=== PATIENT | female | born 1995 | race Caucasian/White ===

== ENCOUNTER → 2019-05-19 16:45 | Outpatient (CLI) | payer OTHER, MEDICAID, SELFPAY ==
[2019-05-19 17:44] LABS: Internal QC Validated? YES +Cl - CLEAR BKGD; Pregnancy, Urine Negative Negative
== END ==
PROVIDERS: PCP Family Medicine; Referring Provider Dermatology; Visit Provider Dermatology
DX: L70.0 Acne vulgaris (principal); Z79.899 Other long term (current) drug therapy
CPT/HCPCS: 81025

== ENCOUNTER → 2019-08-04 | Outpatient (CLI) | payer OTHER, MEDICAID, SELFPAY ==
[2016-12-02 09:58] VITALS: BMI 41.8
[2019-08-04 17:37] LABS: Internal QC Validated? YES +Cl - CLEAR BKGD; Pregnancy, Urine Negative Negative
--- OUTSIDE RECORDS SUMMARY | 2019-12-19 07:22 | XMS RPT_ITS | CCD ---
:1995 External Reference #:[id number] Author Organization [facility] Care Team Providers Name Role Phone Shanique Ang Primary Care Provider Medications Medication Name Sig Date Prescriber Location Albuterol albuterol HFA (PROAIR 03-30-2019 [facility] HFA) 90 mcg/actuation (79483 ) inhaler Indications: Wheezing on auscultation Inhale 2 Puffs as instructed every 4 hours as needed. 1 Inhaler 5 03/30/2019 Active Comment: Inhale 2 Puffs as instructed every 4 hours as needed. Amphetamine amphetamine-dextroamphetamine 09-30-2019 - [facility] aspartate / XR (ADDERALL XR) 20 mg 24 hr 12-30-2019 [facility] Amphetamine Sulfate capsule Indications: Attention (87691) / Dextroamphetamine deficit hyperactivity disorder saccharate / (ADHD), unspecified ADHD type Dextroamphetamine Take 1 capsule by mouth once Sulfate daily for 30 days. 30 capsule 0 11/01/2019 11/30/2019 Discontinued Comment: Take 1 capsule by mouth once daily for 30 days. ISOtretinoin ISOtretinoin (ACCUTANE) 05-10-2019 [facility] 10 mg capsule Take 1 (38050) capsule by mouth twice daily. [facility] 0 05/10/2019 Active Comment: Take 1 capsule by mouth twic e daily. Prescribed [facility] Minocycline minocycline (MINOCIN, 10-12-2019 [facility] Provider [facility] DYNACIN) 100 mg capsule (441 95) Take 1 capsule by mouth once daily. 0 10/12/2019 Active Comment: Take 1 capsule by mouth once daily. Problems Active Problems Category Problem Name Status Date Location Anxiety disorders Anxiety disorder Active 01-05-2013 - [facility] (82530) Attention-deficit Attention deficit Active 08-03-2009 - [facility] conduct and disruptive hyperactivity disorder (23199) behavior disorders Mood disorders Depressive disorder Active 06-24-2008 - [facility] (84153) Other nutritional; Obesity Active [facility] endocrine; and (29757) metabolic disorders Other skin disorders Acne Active [facility] (85278) Screening and history Tobacco use and Active 05-23-2016 - [facility] health and exposure - finding ( 83026) substance abuse codes Substance-related Stopped smoking Active 05-23-2016 - [facility] disorders (08651) Unclassified Patient encounter Active [facility] status (33211) Past or Other Problems Category Problem Name Status Date Location Hypertension complicating Pre-eclampsia Completed 01-13-2017 - [facility] ; childbirth and (4 8214) the puerperium Results Result Name Value Range Unit Interpretation Flag Date Location obsolete on 2019-11 OBSOLETE Refill (FAMPWS) Normal 11-30-2019 [facility] ISIDRA MORELAND ([id number]) 1995 [facility] Date Time Provider Department ([id number]) 11/30/19 HEAVEN ANG During your visit today, we recorded the following informati on about you: Bessy Urbina Ma 11/30/2019 8:53 AM Signed Patient has been identified by name and date of : Yes Pending Prescriptions Disp Refills DEXTROAMPHETAMINE-AMPHETAMINE ER 20 MG 24HR CAPS ULE,EXTEND RELEASE 30 capsule 0 Sig: Take 1 capsule by mouth once daily for 30 days. GISSEL Class: C-II SCOTT: No RX INSTRUCTIONS: Patient aware RX will be sent to pharmacy. No need to notify patient. Bessy Urbina Ma Last ov: 11/2019 Last refill; 11/01/2019 No appointment scheduled Heaven Ang MD 11/30/2019 11:22 AM Signed OK to refill as ordered MD Clau Sommer Ma 11/30/2019 11:25 AM Signed The following approved medic ation requests have been transmitted electronically. Signed Prescriptions Disp Refills amphetamine-dextroamphetamine XR (ADDERALL XR) 2 0 mg 24 hr capsule 30 capsule 0 Sig: Take 1 capsule by mouth once daily for 30 days. GISSEL Class: C-II SCOTT: No Authorizing Provider: HEAVEN ANG Ma Allergies As of Date: 11/30/2019 (No Known Allergies) Date Reviewed: 11/10/2019 Reviewed by: Nando Domínguez MA - Fully Assessed Reason for Visit: Refill Request [94] Visit Diagnosis:Attention deficit hyperactivity disord er (ADHD), unspecified ADHD type [F90.9] Order(s):amphetamine-dextroamphetamine XR (ADDERALL XR) 20 m g 24 hr capsuleTake 1 capsule by mouth once daily for 30 days.Disp: 30 capsuleRfl: 0 Prescriptions as of 11/30/2019 Sig: DEXTROAMPHETAMINE-AMPHETAMINE* Take 1 capsule by mouth once * MINOCYCLINE 100 MG CAPSULE Take 1 capsule by mouth once * ISOTRETINOIN 10 MG CAPSULE Take 1 capsule by mouth twice* ALBUTEROL SULFATE HFA 90 MCG/* Inhale 2 Puffs as instructed * Problem List As Of Date 11/30/2019 Noted Resolved Depression [F32.9] 06/24/2008 ADHD (Attention Deficit Hyperactivity Disorder)*08/03/2009 Missed [O02.1] 07/18/2010 08/06/2010 Anxiety disorder [F41.9] 01/05/2013 Tobacco use [Z72.0] Obesity [E66.9] Obesity in [O99.210] 05/23/2016 01/13/2017 More... Quit smoking [Z87.891] 05/23/2016 More... History of depression [Z86.59] 05/23/2016 More... Patient requested diagnostic testing [Z01.89] 05/23/201604/2016 More... 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 Medications Discontinued During This Encounter Prescriptions - amphetamine-dextroamphetamine XR (ADDERALL XR) 20 mg 24 hr capsule (Discontinued) Take 1 capsule by mouth once daily for 30 days. Encounter Status:Closed by CLAU OLIVEIRA MA on 11/30/19 remote cmp (for [facility] use only) on 2019-11-26 Albumin [Mass/Vol] 4.7 3.9-4.9 g/dL Normal 11-26-2019 [facility] (95917) Comment: Performed By: #### RCMP #### [address] [phone] ALP [Catalytic activity/Vol] 57 34-123 U/L Normal 0 11-26-2019 [facility] (46703) Comment: Performed By: #### RCMP #### [address] [phone] ALT [Catalytic activity/Vol] 16 7-38 U/L Normal 0 11-26-2019 [facility] (81883) Comment: Performed By: #### RCMP #### [address] [phone] Anion gap [Moles/Vol] 14 9-18 mmol/L Normal 11-26-19 [facility] (23546) Comment: Performed By: #### RCMP #### [address] [phone] AST [Catalytic activity/Vol] 25 13-35 U/L Normal 0 11-26-2019 [facility] (84197) Comment: Performed By: #### RCMP #### [address] [phone] Bilirubin [Mass/Vol] 0.3 0.2-1.3 mg/dL Normal 0 [facility] (65310) Comment: Performed By: #### RCMP #### [place] [id number] [place], [place] [phone]- [phone] Calcium [Mass/Vol] 9.9 8.5-10.2 mg/dL Normal 11-26-2019 [facility] (18601) Comment: Performed By: #### RCMP #### [place] [address] [address] [place], [place] [phone]- [phone] Chloride [Moles/Vol] 102 97-105 mmol/L Normal 0 [facility] (67186) Comment: Performed By: #### RCMP #### [place] [address] [address] [place], [place] [phone]- [phone] CO2 [Moles/Vol] 22 22-30 mmol/L Normal 11-26-2019 [facility] (57916) Comment: Performed By: #### RCMP #### [place] [address] [address] [place], [place] [phone] Creatinine [Mass/Vol] 0.83 0.58-0.96 mg/dL Normal 11-26-19 20 [facility] (30349) Comment: Performed By: #### RCMP #### [place] [address] [address] [place], [place] [phone] eGFR- Amer. >60 Normal 11-26-2019 [facility] (61177) Comment: Performed By: #### RCMP #### [place] [address] [address] [place], [place] [phone] GFR/1.73 sq M predicted >60 mL/min/{1.73_m2} Normal 11-26-2019 [facility] among non-blacks [facility] (37490) (S/P/Bld) [Vol rate/Area] Comment: Result Comment: eGFR (Estima delaney GFR) Units of measure: mL/min/1.73 meters squared eGFR is derived from the ree xpressed MDRD Study equation using the following parameters: serum creatinine, age, gender and race. The creatinine assay has been calibrated to be traceable to IDMS. An eGFR <60 mL/min/1.73m2 fo r >3 months is consistent with chronic kidney disease. Refer to KDOQI guidelines for clinical interpretation. In patients with unstable re nal function, e.g. those with acute kidney injury, the eGFR may not accurately reflect actual GFR. Performed By: #### RCMP #### [facility], [place] [phone]- [phone] Glucose [Mass/Vol] 77 74-99 mg/dL Normal 11-26-2019 [facility] (61800) Comment: Result Comment: The [place] Diabetes Association (ADA) provides guidance for cutoff values for fasting glucose and random glucose. The ADA defines fasting as no caloric intake for at least 8 hours. Fas ting plasma glucose results between 100 to 125 mg/dL indicate increased risk for diabetes (prediabetes). Fasting plasma glucose resul ts greater than or equal to 126 mg/dL meet the criteria for diagnosis of diabetes. In the absence of unequivocal hyperglycemia, results should be confirmed by repeat testing. In a patient with classic s ymptoms of hyperglycemia or hyperglycemic crisis, random plasma glucose results greater than or equal to 200 mg/dL meet the criteria for diagnosis of diabetes. Reference: Standards of [facility] in Diabetes 2016, [place] Diabetes Association. Diabetes Care. 2016.39(Suppl 1). Performed By: #### RCMP #### [facility], [place] [phone] Potassium [Moles/Vol] 4.1 3.7-5.1 mmol/L Normal 11-26-19 [facility] (23153) Comment: Performed By: #### RCMP #### [facility] [address] [place], [place] [phone]- [phone] Protein [Mass/Vol] 7.8 6.3-8.0 g/dL Normal 11-26-2019 [facility] (40193) Comment: Performed By: #### RCMP #### [facility], [place] [phone]- [phone] Sodium [Moles/Vol] 138 136-144 mmol/L Normal 11-26-2019 [facility] (03285) Comment: Performed By: #### RCMP #### [place] [address], [place] [phone]- [phone] Urea nitrogen [Mass/Vol] 22 7-21 mg/dL High 11-25 [facility] (70872) Comment: Performed By: #### RCMP #### [place] [address], [place] [phone] cbc and differential on 2019-11-26 Abs Baso 0.03 <0.11 k/uL Normal 11-26-2019 [facility] (54533) Comment: Performed By: #### CBCDIF ## ##[place] [address], [place] [phone]- [phone] Abs Hyde 0.82 <0.87 k/uL Normal 11-26-2019 [facility] (01473) Comment: Performed By: #### CBCDIF ## ##[place] [address] [place] [id number]- [phone] Abs Neut 5.52 1.45-7.50 k/uL Normal 11-26-2019 [facility] (75418) Comment: Performed By: #### CBCDIF ## ##[place] [address], [place] [phone]- [phone] Absolute nRBC <0.01 <0.01 Normal 11-26-2019 [facility] (52439) Comment: Performed By: #### CBCDIF ## ##[place] [address], [place] [phone]- [phone] Basophils/100 WBC (Bld) 0.4 % Normal 2019 [facility] (46335) Comment: Performed By: #### CBCDIF ## ##[place] [address], [place] [phone]- [phone] DTYPE Auto Diff Normal 11-26-2019 [facility] (18122) Comment: Performed By: #### CBCDIF ## ##[place] [address], [place] [phone]- [phone] Eosinophils (Bld) [#/Vol] 0.08 <0.46 k/uL Normal 11-02 [facility] (81243) Comment: Performed By: #### CBCDIF ## ##[place] [address], [place] [phone]- [phone] Eosinophils/100 WBC (Bld) 0.9 % Normal 11-02 [facility] (02940) Comment: Performed By: #### CBCDIF ## ##[place] [address] [place], [place] [id number]- [phone] Erythrocyte distribution 12.5 11.5-15.0 % Normal 11-25 [facility] width (RBC) [Ratio] [facility] (15649) Comment: Performed By: #### CBCDIF ## ##[place] [address] [place], [place] [phone]- [phone] Hematocrit (Bld) [Volume 44.8 36.0-46.0 % Normal 11-25 [facility] fraction] [facility] (28553) Comment: Performed By: #### CBCDIF ## ##[place] [address] [place], [place] [phone]- [phone] Hemoglobin (Bld) 14.1 11.5-15.5 g/dL Normal 11-26-2019 [facility] [Mass/Vol] [facility] (56354) Comment: Performed By: #### CBCDIF ## ##[place] [address], [place] [id number] [phone] Lymphocytes (Bld) [#/Vol] 2.01 1.00-4.00 k/uL Normal 11-02 [facility] (81383) Comment: Performed By: #### CBCDIF ## ##[place] [address], [place] [phone]- [phone] Lymphocytes/100 WBC (Bld) 23.7 % Normal 11-02 [facility] (45917) Comment: Performed By: #### CBCDIF ## ##[place] [address], [place] [phone]- [phone] MCH (RBC) [Entitic mass] 31.0 26.0-34.0 pG Normal 11-25 [facility] (86294) Comment: Performed By: #### CBCDIF ## ##[place] [address], [place] 00066083- [phone] MCHC (RBC) [Mass/Vol] 31.5 30.5-36.0 g/dL Normal 11-26-19 [facility] (46322) Comment: Performed By: #### CBCDIF ## ##[place] [address] [place], [place] [phone]- [phone] MCV (RBC) [Entitic vol] 98.5 80.0-100.0 fL Normal 11-25 [facility] (06178) Comment: Performed By: #### CBCDIF ## ##[place] [address], [place] [id number]- [phone] Monocytes/100 WBC (Bld) 9.7 % Normal 2019 [facility] (12326) Comment: Performed By: #### CBCDIF ## ##[place] [address], [place] [phone]- [phone] Neutrophils/100 WBC (Bld) 65.3 % Normal 11-02 [facility] (83611) Comment: Performed By: #### CBCDIF ## ##[place] [address], [place] [phone]- [phone] NRBCs 0.0 0 /100 WBC Normal 11-26-2019 [facility] (68579) Comment: Performed By: #### CBCDIF ## ##[place] [address], [place] [phone]- [phone] Platelet mean volume 10.3 9.0-12.7 fL Normal 0 [facility] (Bld) [Entitic vol] [facility] (21088) Comment: Performed By: #### CBCDIF ## ##[address] [phone] Platelets (Bld) [#/Vol] 342 150-400 k/uL Normal 2019 [facility] (93445) Comment: Performed By: #### CBCDIF ## ##[address] [phone] RBC (Bld) [#/Vol] 4.55 3.90-5.20 m/uL Normal 11-26-2019 [facility] (22068) Comment: Performed By: #### CBCDIF ## ##[address] [phone]- [phone] WBC (Bld) [#/Vol] 8.48 3.70-11.00 k/uL Normal 11-26-2019 [facility] (57084) Comment: Performed By: #### CBCDIF ## ##[address] [phone]- [phone] progress on 2019-11 PROGRESS HNO ID: [id number] Normal 11-10-2019 [facility] Author: [facility] ([id number]) Service: ? Author Type: Physician Type: Progress Notes Filed: 11/10/2019 5:54 PM Note Text: This Team Access Model visit is a virtual encounter via [employer]. It required patient-provider interaction for the medical decisi on making as documented below. Chief Complaint Patient presents with: F/U 6 Month HPI:This Team Access Model visit is a virtual encounter. It required patient-provider interaction for the medical decision making as documented below. Patient was offered a virtual/telemedicine appointment in li eu of an office visit due to recommendations to reduce patient exposu re to COVID-19. Patient is aware of limitations of performing the visit without a face to face visit in the office setting and agrees. 6 mo f/u. ADHD - Doing well with use of Adderall XR 20 mg once daily. Pt reports that she is doing well on regimen and is able to stay focuse d. Derm - Started new regimen of Minocycline 100 mg once daily. Reports that she never started the Accutane that was prescribed previousl y. Reports her boss tested + for COVID - not in the last month. Pt denies being tested, having symptoms or travel. Requests labs; has not had done since she had preeclampsia w ith her daughter almost three years ago. Past medical history, appointments, medications, allergies pablo foster. Previous Medical History PAST MEDICAL HISTORY Diagnosis Date - Acne - ADHD (attention deficit hyperactivity disorder) - Anemia - Anxiety disorder 01/05/2013 - Asthma unknown type - Chlamydia 2014 - Depression - Hypertension in , pre-eclampsia, delivered 2016 - Obesity - Tobacco use Previous Surgical History PAST SURGICAL HISTORY Procedure Laterality Date - OTHER 2010 Eye muscle surgery - SURG RX MISSED ABORTN,1ST TRI 07/20/10 DANDC, hemorrhage EBL 1000 cc Family History FAMILY HISTORY Problem Relation Age of Onset - Heart Maternal Grandfather - Heart Paternal Grandfather - Hypertension Mother - other (Sleep apnea) Mother - Coronary Artery Disease Father - COPD Father - No Known Problems Sister - No Known Problems Sister - No Known Problems Brother - No Known Problems Brother - Hypertension Maternal Grandmother - Heart Paternal Grandmother - Cancer Maternal Aunt - Cancer Paternal Aunt - No Known Problems Daughter Patient Allergies ALLERGIES No Known Allergies Current Medications Current Outpatient Medications on File Prior to Visit Medication Sig - amphetamine-dextroamphetamine XR (ADDERALL XR) 20 mg 24 hr capsule Take 1 capsule by mouth once daily for 30 days. - ISOtretinoin (ACCUTANE) 10 mg capsule Take 1 capsule by [facility] twice daily. [facility] - albuterol HFA (PROAIR HFA) 90 mcg/actuation inhaler Inhale 2 Puffs as instructed every 4 hours as needed. No current facility-administered medications on file prior t o visit. Social History Social History Tobacco Use - Smoking status: Former Smoker Packs/day: 1.00 Years: 7.00 Pack years: 7.00 Quit date: 05/14/2016 Years since quittin.4 - Smokeless tobacco: Never Used Substance Use Topics - Alcohol use: Yes Comment: Occasionally - Drug use: No EXAM: LMP 09/19/2018 (Exact Date) General Appearance: Well appearing, alert, in no acute distr ess, well-hydrated, well nourished.. Health Maintenance List HEPATITIS C SCREENING due on 01/22/2012 INFLUENZA(1) due on 11/02/2019 PAP TESTING due on 09/30/2021 DTAP,TDAP,TD(8 - Td) due on 10/16/2026 ONE PNEUMOVAX PRIOR TO AGE 65 Completed HPV VACCINE Completed MENINGOCOCCAL CONJUGATE Completed HIV SCREENING Completed Data reviewed [facility] ASSESSMENT/PLAN: 1. Attention deficit hyperactivity disorder (ADHD), unspecif ied ADHD type - ICD9: 314.01, ICD10: F90.9 (primary diagnosis) Continue current medications. - CMP (CMP) (FOR REMOTE [facility] USE) - CBC + DIFF 2. Acne vulgaris - ICD9: 706.1, ICD10: L70.0 - CMP (CMP) (FOR REMOTE [facility] USE) - CBC + DIFF 3. Medication monitoring encounter - ICD9: V58.83, ICD10: Z5 1.81 - CMP (CMP) (FOR REMOTE [facility] USE) - CBC + DIFF Notify of lab results Follow up in 6 months I agree with the Chief Complaint, ROS, and Past Histories in dependently gathered by the clinical lab support service tech and the remaining scr ibed note accurately describes my personal service to the patient. Heaven Ang MD The documentation for this note was completed by Nando joy MA acting as scribe for Heaven Ang MD. November 10, 2019 4:49 PM. Nanod Domínguez MA obsolete on 2019-10 OBSOLETE Refill (FAMPWS) Normal 11-01-2019 [facility] ISIDRA MORELAND ([id number]) 1995 [facility] Time Provider Department ([id number]) 11/01/19 HEAVEN ANG During your visit today, we recorded the following informati on about you: Bessy Urbina Ma 11/01/2019 8:48 AM Signed Patient has been identified by name and date of : Yes Pending Prescriptions Disp Refills DEXTROAMPHETAMINE-AMPHETAMINE ER 20 MG 24HR CAPS ULE,EXTEND RELEASE 30 capsule 0 Sig: Take 1 capsule by mouth once daily for 30 days. GISSEL Class: C-II SCOTT: No RX INSTRUCTIONS: Patient aware RX will be sent to pharmacy. No need to notify patient. Bessy Urbina Ma Last ov: 05/2019 Last refill: 09/2019 No appointment scheduled Heaven Ang MD 11/01/2019 11:11 AM Signed OK to refill as ordered MD Clau Sommer Ma 11/01/2019 11:14 AM Signed The following approved medic ation requests have been transmitted electronically. Signed Prescriptions Disp Refills amphetamine-dextroamphetamine XR (ADDERALL XR) 2 0 mg 24 hr capsule 30 capsule 0 Sig: Take 1 capsule by mouth once daily for 30 days. GISSEL Class: C-II SCOTT: No Authorizing Provider: HEAVEN ANG Ma Allergies As of Date: 11/01/2019 (No Known Allergies) Date Reviewed: 05/10/2019 Reviewed by: Clau Oliveira Ma - Fully Assessed Reason for Visit: Refill Request [94] Visit Diagnosis:Attention deficit hyperactivity disord er (ADHD), unspecified ADHD type [F90.9] Order(s):amphetamine-dextroamphetamine XR (ADDERALL XR) 20 m g 24 hr capsuleTake 1 capsule by mouth once daily for 30 days.Disp: 30 capsuleRfl: 0 Prescriptions as of 11/01/2019 Sig: DEXTROAMPHETAMINE-AMPHETAMINE* Take 1 capsule by mouth once * ISOTRETINOIN 10 MG CAPSULE Take 1 capsule by mouth twice* ALBUTEROL SULFATE HFA 90 MCG/* Inhale 2 Puffs as instructed * Problem List As Of Date 11/01/2019 Noted Resolved Depression [F32.9] 06/24/2008 ADHD (Attention Deficit Hyperactivity Disorder)*08/03/2009 Missed [O02.1] 07/18/2010 08/06/2010 Anxiety disorder [F41.9] 01/05/2013 Tobacco use [Z72.0] Obesity [E66.9] Obesity in [O99.210] 05/23/2016 01/13/2017 More... Quit smoking [Z87.891] 05/23/2016 More... History of depression [Z86.59] 05/23/2016 More... Patient requested diagnostic testing [Z01.89] 05/23/201604/2016 More... 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 Medications Discontinued During This Encounter Prescriptions - amphetamine-dextroamphetamine XR (ADDERALL XR) 20 mg 24 hr capsule (Discontinued) Take 1 capsule by mouth once daily for 30 days. Encounter Status:Closed by CLAU OLIVEIRA MA on 11/01/19 obsolete on 2019-09 OBSOLETE Refill (FAMPWS) Normal 09-30-2019 [facility] ISIDRA MORELAND ([id number]) 1995 [facility] Time Provider Department ([id number]) 09/30/19 ENRICO QIU ([facility]) FAMPWS During your visit today, we recorded the following informati on about you: Clau Oliveira Ma 09/30/2019 4:46 PM Signed Last office visit: 05/10/2019 F/u scheduled: 11/10/2019 Last refilled on: adderall #30 on 08/30/2019 Clau Ang MD 09/30/2019 4:51 PM Signed OK to refill as ordered MD Clau Sommer Ma 09/30/2019 4:55 PM Signed The following approved medic ation requests have been transmitted electronically. Signed Prescriptions Disp Refills amphetamine-dextroamphetamine XR (ADDERALL XR) 2 0 mg 24 hr capsule 30 capsule 0 Sig: Take 1 capsule by mouth once daily for 30 days. GISSEL Class: C-II SCOTT: No Authorizing Provider: HEAVEN ANG Ma Allergies As of Date: 09/30/2019 (No Known Allergies) Date Reviewed: 05/10/2019 Reviewed by: Clau Oliveira Ma - Fully Assessed Reason for Visit: Refill Request [94] Visit Diagnosis:Attention deficit hyperactivity disord er (ADHD), unspecified ADHD type [F90.9] Order(s):amphetamine-dextroamphetamine XR (ADDERALL XR) 20 m g 24 hr capsuleTake 1 capsule by mouth once daily for 30 days.Disp: 30 capsuleRfl: 0 Prescriptions as of 09/30/2019 Sig: DEXTROAMPHETAMINE-AMPHETAMINE* Take 1 capsule by mouth once * ISOTRETINOIN 10 MG CAPSULE Take 1 capsule by mouth twice* ALBUTEROL SULFATE HFA 90 MCG/* Inhale 2 Puffs as instructed * Problem List As Of Date 09/30/2019 Noted Resolved Depression [F32.9] 06/24/2008 ADHD (Attention Deficit Hyperactivity Disorder)*08/03/2009 Missed [O02.1] 07/18/2010 08/06/2010 Anxiety disorder [F41.9] 01/05/2013 Tobacco use [Z72.0] Obesity [E66.9] Obesity in [O99.210] 05/23/2016 01/13/2017 More... Quit smoking [Z87.891] 05/23/2016 More... History of depression [Z86.59] 05/23/2016 More... Patient requested diagnostic testing [Z01.89] 05/23/201604/2016 More... 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 Medications Discontinued During This Encounter amphetamine-dextroamphetamine XR (AD* 30 c* 0 08/30/201909/29 Route: ORAL Sig: Take 1 capsule by mouth once daily for 30 days. Disc: Reason for discontinue is not on file. Encounter Status:Closed by CLAU OLIVEIRA MA on 09/30/19 obsolete on 2019-08 OBSOLETE Refill (FAMPWS) Normal 08-30-2019 [facility] ISIDRA MORELAND ([id number]) 1995 [facility] Date Time Provider Department ([id number]) 08/30/19 HEAVEN ANG FAMPWS During your visit today, we recorded the following informati on about you: Rey Irizarry LPN 08/30/2019 8:55 AM Signed Patient phones requesting refills as follows: Pending Prescriptions Disp Refills DEXTROAMPHETAMINE-AMPHETAMINE ER 20 MG 24HR CAPS ULE,EXTEND RELEASE 30 capsule 0 Sig: Take 1 capsule by mouth once daily for 30 days. GISSEL Class: C-II SCOTT: No Please review and advise. Rey Qiu APRN.CNP 08/30/2019 9:00 AM Signed Approved. PDMP website checked and validated. All prescrip tions have been APPROPRIATELY filled. No suspicious activity was identified. 08/30/2019 by Enrico Qiu APRN.CNP The following approved medic ation requests have been transmitted electronically. Signed Prescriptions Disp Refills amphetamine-dextroamphetamine XR (ADDERALL XR) 2 0 mg 24 hr capsule 30 capsule 0 Sig: Take 1 capsule by mouth once daily for 30 days. GISSEL Class: C-II SCOTT: No Authorizing Provider: ENRICO QIU (OBI) Enrico Qiu APRN.CNP Allergies As of Date: 08/30/2019 (No Known Allergies) Date Reviewed: 05/10/2019 Reviewed by: Clau Oliveira Ma - Fully Assessed Reason for Visit: Refill Request [94] Visit Diagnosis:Attention deficit hyperactivity disord er (ADHD), unspecified ADHD type [F90.9] Order(s):amphetamine-dextroamphetamine XR (ADDERALL XR) 20 m g 24 hr capsuleTake 1 capsule by mouth once daily for 30 days.Disp: 30 capsuleRfl: 0 Prescriptions as of 08/30/2019 Sig: DEXTROAMPHETAMINE-AMPHETAMINE* Take 1 capsule by mouth once * ISOTRETINOIN 10 MG CAPSULE Take 1 capsule by mouth twice* ALBUTEROL SULFATE HFA 90 MCG/* Inhale 2 Puffs as instructed * Problem List As Of Date 08/30/2019 Noted Resolved Depression [F32.9] 06/24/2008 ADHD (Attention Deficit Hyperactivity Disorder)*08/03/2009 Missed [O02.1] 07/18/2010 08/06/2010 Anxiety disorder [F41.9] 01/05/2013 Tobacco use [Z72.0] Obesity [E66.9] Obesity in [O99.210] 05/23/2016 01/13/2017 More... Quit smoking [Z87.891] 05/23/2016 More... History of depression [Z86.59] 05/23/2016 More... Patient requested diagnostic testing [Z01.89] 05/23/201604/2016 More... Single umbilical artery [Q27.0] 08/26/2016 01/13/2017 Hypertension in , pre-eclampsia, deliv*01/13/2017 Prescriptions ordered this encounter Disp Refills Start End DEXTROAMPHETAMINE-AMPHETAMINE ER 20 * 30 c* 0 08/30/2019 Route: ORAL Sig: Take 1 capsule by mouth once daily for 30 days. Medications Discontinued During This Encounter amphetamine-dextroamphetamine XR (AD* 30 c* 0 07/28/201908/29 Route: ORAL Sig: Take 1 capsule by mouth once daily for 30 days. Disc: Reason for discontinue is not on file. Encounter Status:Closed by ENRICO QIU CNP on 08/30/19 obsolete on 2019-07 OBSOLETE Refill (FAMPWS) Normal 07-28-2019 [facility] KELLEYRAVINDRAISIDRA R ([id number]) 1995 [facility] Date Time Provider Department ([id number]) 07/28/19 ENRICO QIU ([facility]) MADELINEPWS During your visit today, we recorded the following informati on about you: Aarti Logan MA, OBED 07/28/2019 10:27 AM Signed Last Refill:07/01/19 Qty:30 Refills:0 Next Scheduled Office Visit:11/10/19 Last Office Visit:05/10/19 OBED Wick MD 07/28/2019 11:19 AM Signed OK to refill as ordered Heaven Ang MD Allergies As of Date: 07/28/2019 (No Known Allergies) Date Reviewed: 05/10/2019 Reviewed by: Clau Oliveira Ma - Fully Assessed Reason for Visit: Refill Request [94] Visit Diagnosis:Attention deficit hyperactivity disord er (ADHD), unspecified ADHD type [F90.9] Order(s):amphetamine-dextroamphetamine XR (ADDERALL XR) 20 m g 24 hr capsuleTake 1 capsule by mouth once daily for 30 days.Disp: 30 capsuleRfl: 0 Prescriptions as of 07/28/2019 Sig: DEXTROAMPHETAMINE-AMPHETAMINE* Take 1 capsule by mouth once * ISOTRETINOIN 10 MG CAPSULE Take 1 capsule by mouth twice* ALBUTEROL SULFATE HFA 90 MCG/* Inhale 2 Puffs as instructed * Problem List As Of Date 07/28/2019 Noted Resolved Depression [F32.9] 06/24/2008 ADHD (Attention Deficit Hyperactivity Disorder)*08/03/2009 Missed [O02.1] 07/18/2010 08/06/2010 Anxiety disorder [F41.9] 01/05/2013 Tobacco use [Z72.0] Obesity [E66.9] Obesity in [O99.210] 05/23/2016 01/13/2017 More... Quit smoking [Z87.891] 05/23/2016 More... History of depression [Z86.59] 05/23/2016 More... Patient requested diagnostic testing [Z01.89] 05/23/201604/2016 More... Single umbilical artery [Q27.0] 08/26/2016 01/13/2017 Hypertension in , pre-eclampsia, deliv*01/13/2017 Prescriptions ordered this encounter Disp Refills Start End DEXTROAMPHETAMINE-AMPHETAMINE ER 20 * 30 c* 0 07/28/2019 Route: ORAL Sig: Take 1 capsule by mouth once daily for 30 days. Medications Discontinued During This Encounter amphetamine-dextroamphetamine XR (AD* 30 c* 0 07/01/201907/27 Route: ORAL Sig: Take 1 capsule by mouth once daily for 30 days. Disc: Reason for discontinue is not on file. Encounter Status:Closed by AARTI LOGAN on 07/28/19 obsolete on 2019-06 OBSOLETE Refill (FAMPWS) Normal 06-30-2019 [facility] ISIDRA MORELAND ([id number]) 1995 [facility] Date Time Provider Department ([id number]) 06/30/19 ENRICO QIU ([place]) FAMPWS During your visit today, we recorded the following informati on about you: Nando Domínguez MA 06/30/2019 1:05 PM Signed Last Rx refill: 05/25/2019 #30 w/0 Last Appt: 05/10/2019 Next OV: 11/10/2019 Nando Qiu APRN.CNP 07/01/2019 7:54 AM Signed Approved PDMP website checked and validated. All prescrip tions have been APPROPRIATELY filled. No suspicious activity was identified. 07/01/2019 by Enrico Qiu APRN.CNP The following approved medic ation requests have been transmitted electronically. Signed Prescriptions Disp Refills amphetamine-dextroamphetamine XR (ADDERALL XR) 2 0 mg 24 hr capsule 30 capsule 0 Sig: Take 1 capsule by mouth once daily for 30 days. GISSEL Class: C-II SCOTT: No Authorizing Provider: ENRICO QIU ([place]) Enrico Qiu APRN.CNP Allergies As of Date: 06/30/2019 (No Known Allergies) Date Reviewed: 05/10/2019 Reviewed by: Clau Oliveira Ma - Fully Assessed Reason for Visit: Refill Request [94] Visit Diagnosis:Attention deficit hyperactivity disord er (ADHD), unspecified ADHD type [F90.9] Order(s):amphetamine-dextroamphetamine XR (ADDERALL XR) 20 m g 24 hr capsuleTake 1 capsule by mouth once daily for 30 days.Disp: 30 capsuleRfl: 0 Prescriptions as of 06/30/2019 Sig: DEXTROAMPHETAMINE-AMPHETAMINE* Take 1 capsule by mouth once * ISOTRETINOIN 10 MG CAPSULE Take 1 capsule by mouth twice* ALBUTEROL SULFATE HFA 90 MCG/* Inhale 2 Puffs as instructed * Problem List As Of Date 06/30/2019 Noted Resolved Depression [F32.9] 06/24/2008 ADHD (Attention Deficit Hyperactivity Disorder)*08/03/2009 Missed [O02.1] 07/18/2010 08/06/2010 Anxiety disorder [F41.9] 01/05/2013 Tobacco use [Z72.0] Obesity [E66.9] Obesity in [O99.210] 05/23/2016 01/13/2017 More... Quit smoking [Z87.891] 05/23/2016 More... History of depression [Z86.59] 05/23/2016 More... Patient requested diagnostic testing [Z01.89] 05/23/201604/2016 More... Single umbilical artery [Q27.0] 08/26/2016 01/13/2017 Hypertension in , pre-eclampsia, deliv*01/13/2017 Prescriptions ordered this encounter Disp Refills Start End DEXTROAMPHETAMINE-AMPHETAMINE ER 20 * 30 c* 0 07/01/2019 Route: ORAL Sig: Take 1 capsule by mouth once daily for 30 days. Medications Discontinued During This Encounter amphetamine-dextroamphetamine XR (AD* 30 c* 0 05/25/201906/30 Route: ORAL Sig: Take 1 capsule by mouth once daily for 30 days. Disc: Reason for discontinue is not on file. Encounter Status:Closed by ENRICO QIU CNP on 07/01/19 obsolete on 2019-05 OBSOLETE Refill (FAMPWS) Normal 05-25-2019 [facility] ISIDRA MORELAND ([id number]) 1995 [facility] Time Provider Department ([id number]) 05/25/19 ENRICO QIU) FAMMartWS During your visit today, we recorded the following informati on about you: Clau Oliveira Ma 05/25/2019 8:15 AM Signed Last office visit: 11/10/2019 F/u scheduled: 05/10/2019 Last refilled on: Adderall #30 on 04/28/2019 Clau Qiu APRN.CNP 05/25/2019 8:39 AM Signed Approved. PDMP website checked and validated. All prescrip tions have been APPROPRIATELY filled. No suspicious activity was identified. 05/25/2019 by Enrico Qiu APRN.CNP The following approved medic ation requests have been transmitted electronically. Signed Prescriptions Disp Refills amphetamine-dextroamphetamine XR (ADDERALL XR) 2 0 mg 24 hr capsule 30 capsule 0 Sig: Take 1 capsule by mouth once daily for 30 days. GISSEL Class: C-II SCOTT: No Authorizing Provider: ENRICO QIU) Enrico Qiu APRN.CNP Allergies As of Date: 05/25/2019 (No Known Allergies) Date Reviewed: 05/10/2019 Reviewed by: Clau Oliveira Ma - Fully Assessed Reason for Visit: Refill Request [94] Visit Diagnosis:Attention deficit hyperactivity disord er (ADHD), unspecified ADHD type [F90.9] Order(s):amphetamine-dextroamphetamine XR (ADDERALL XR) 20 m g 24 hr capsuleTake 1 capsule by mouth once daily for 30 days.Disp: 30 capsuleRfl: 0 Prescriptions as of 05/25/2019 Sig: DEXTROAMPHETAMINE-AMPHETAMINE* Take 1 capsule by mouth once * ISOTRETINOIN 10 MG CAPSULE Take 1 capsule by mouth twice* ALBUTEROL SULFATE HFA 90 MCG/* Inhale 2 Puffs as instructed * Problem List As Of Date 05/25/2019 Noted Resolved Depression [F32.9] 06/24/2008 ADHD (Attention Deficit Hyperactivity Disorder)*08/03/2009 Missed [O02.1] 07/18/2010 08/06/2010 Anxiety disorder [F41.9] 01/05/2013 Tobacco use [Z72.0] Obesity [E66.9] Obesity in [O99.210] 05/23/2016 01/13/2017 More... Quit smoking [Z87.891] 05/23/2016 More... History of depression [Z86.59] 05/23/2016 More... Patient requested diagnostic testing [Z01.89] 05/23/201604/2016 More... Single umbilical artery [Q27.0] 08/26/2016 01/13/2017 Hypertension in , pre-eclampsia, deliv*01/13/2017 Prescriptions ordered this encounter Disp Refills Start End DEXTROAMPHETAMINE-AMPHETAMINE ER 20 * 30 c* 0 05/25/2019 Route: ORAL Sig: Take 1 capsule by mouth once daily for 30 days. Medications Discontinued During This Encounter amphetamine-dextroamphetamine XR (AD* 30 c* 0 04/28/201905/24 Route: ORAL Sig: Take 1 capsule by mouth once daily for 30 days. Disc: Reason for discontinue is not on file. Encounter Status:Closed by ENRICO QIU CNP on 05/25/19 progress on 2019-05 PROGRESS HNO ID: [id number] Normal 05-10-2019 [facility] Author: Heaven Ang Wellpinit ([id number]) Service: ? Author Type: Physician Type: Progress Notes Filed: 05/11/2019 10:02 AM Note Text: Chief Complaint Patient presents with: 6 Month Exam: ADHD HPI Isidra Moreland is a 24 year old female who presents here tod ay for 6 month follow up. No bowel, Gi, or urinary concerns. No chest pains, dizziness , or SOB. ADHD: taking Adderall XR 20 mg once daily. Feels this is wor santana well for her. Is helping to get her through the day and stay focused. She takes it daily for work and going to school. 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 Matthias barrientos is going through [employer] [address]. Still working at [employer]. Acne: Following with [facility] for acne. Going to be starting Accutane pill. Past medical history, appointments, medications, allergies pablo foster. Previous Medical History PAST MEDICAL HISTORY Diagnosis Date - Acne - ADHD (attention deficit hyperactivity disorder) - Anemia - Anxiety disorder 01/05/2013 - Asthma unknown type - Chlamydia 2014 - Depression - Hypertension in , pre-eclampsia, delivered 2016 - Obesity - Tobacco use Previous Surgical History PAST SURGICAL HISTORY Procedure Laterality Date - OTHER 2010 Eye muscle surgery - SURG RX MISSED ABORTN,1ST TRI 07/20/10 DANDC, hemorrhage EBL 1000 cc Family History FAMILY HISTORY Problem Relation Age of Onset - Heart Maternal Grandfather - Heart Paternal Grandfather - Hypertension Mother - other (Sleep apnea) Mother - Coronary Artery Disease Father - COPD Father - No Known Problems Sister - No Known Problems Sister - No Known Problems Brother - No Known Problems Brother - Hypertension Maternal Grandmother - Heart Paternal Grandmother - Cancer Maternal Aunt - Cancer Paternal Aunt - No Known Problems Daughter Patient Allergies ALLERGIES No Known Allergies Current Medications Current Outpatient Medications on File Prior to Visit Medication Sig - amphetamine-dextroamphetamine XR (ADDERALL XR) 20 mg 24 hr capsule Take 1 capsule by mouth once daily for 30 days. - albuterol HFA (PROAIR HFA) 90 mcg/actuation inhaler Inhale 2 Puffs as instructed every 4 hours as needed. - amphetamine-dextroamphetamine XR (ADDERALL XR) 20 mg 24 hr capsule Take 1 capsule by mouth once daily for 30 days. No current facility-administered medications on file prior t o visit. Social History Social History Tobacco Use - Smoking status: Former Smoker Packs/day: 1.00 Years: 7.00 Pack years: 7.00 Last attempt to quit: 05/14/2016 Years since quittin.9 - Smokeless tobacco: Never Used Substance Use Topics - Alcohol use: Yes Comment: Occasionally - Drug use: No EXAM: BP 138/88 Pulse 78 Resp 16 Wt 92.5 kg (204 lb) BMI 3 1.76 kg/m? General Appearance: Well appearing, alert, in no acute distr ess, well-hydrated, well nourished. and Obese. Lungs: lungs clear to auscultation. No wheezing, rhonchi, ra les. Heart: RRR without murmur, gallop, or rubs. No ectopy. Health Maintenance List INFLUENZA(1) due on 11/01/2018 PAP TESTING due on 09/30/2021 DTAP,TDAP,TD(8 - Td) due on 10/16/2026 ONE PNEUMOVAX PRIOR TO AGE 65 Completed HPV VACCINE Completed HIV SCREENING Completed Data reviewed PDMP website checked and validated. All prescriptions have b een APPROPRIATELY filled. No suspicious activity was identified. 05/10/2019 by Heaven Ang MD ASSESSMENT/PLAN: 1. Attention deficit hyperactivity disorder (ADHD), unspecif ied ADHD type - ICD9: 314.01, ICD10: F90.9 (primary diagnosis) Controlled -Continue current medications. - DEXTROAMPHETAMINE-AMPHETAMINE ER 20 MG 24HR CAPSULE,EXTEND RELEASE 2. Acne vulgaris - ICD9: 706.1, ICD10: L70.0 Continue current medications. Continue with [facility] Follow up in 6 months. I agree with the Chief Complaint, ROS, and Past Histories in dependently gathered by the clinical lab support service tech and the remaining scr ibed note accurately describes my personal service to the patient. Heaven Ang MD The documentation for this note was completed by Clau simeon Ma acting as scribe for Heaven Ang MD. May 10, 2019 4:32 PM. Clau Oliveira Ma cnov on 2019-05-10 CNOV Office Visit (FAMPWS) Normal 05-10-19 20 [facility] ISIDRA Duran ([id number]) 1995 [facility] Time Provider Department ([id number]) 05/10/19 4:40 PM HEAVEN ANG During your visit today, we recorded the following informati on about you: Pulse Respiration Blood pressure Weight 78/minute 16/minute 138/88 92.5 kg Heaven Ang MD 05/11/2019 10:02 AM Signed Chief Complaint Patient presents with: 6 Month Exam: ADHD HPI Isidra Moreland is a 24 year old female who presents here tod ay for 6 month follow up. No bowel, Gi, or urinary concerns. No chest pains, dizziness , or SOB. ADHD: taking Adderall XR 20 mg once aguilar y. Feels this is working well for her. Is helping to get her through the day and stay focused. She takes it daily for work and going to school. Is trying to get her book ke [employer] certificate until she decides what she wants to major in. She is going t [employer]. Still working at [employer]. Acne: Following with [facility] for acne. Going to be starting Accutane pill. Past medical history, appointments, medications, allergies r kristin. Previous Medical History PAST MEDICAL HISTORY Diagnosis Date - Acne - ADHD (attention deficit hyperactivity disorder) - Anemia - Anxiety disorder 01/05/2013 - Asthma unknown type - Chlamydia 2014 - Depression - Hypertension in , pre-eclampsia, delivered 2016 - Obesity - Tobacco use Previous Surgical History PAST SURGICAL HISTORY Procedure Laterality Date - OTHER 2010 Eye muscle surgery - SURG RX MISSED ABORTN,1ST TRI 07/20/10 DANDC, hemorrhage EBL 1000 cc Family History FAMILY HISTORY Problem Relation Age of Onset - Heart Maternal Grandfather - Heart Paternal Grandfather - Hypertension Mother - other (Sleep apnea) Mother - Coronary Artery Disease Father - COPD Father - No Known Problems Sister - No Known Problems Sister - No Known Problems Brother - No Known Problems Brother - Hypertension Maternal Grandmother - Heart Paternal Grandmother - Cancer Maternal Aunt - Cancer Paternal Aunt - No Known Problems Daughter Patient Allergies ALLERGIES No Known Allergies Current Medications Current Outpatient Medications on File Prior to Visit Medication Sig - amphetamine-dextroamphetamine XR (ADDERALL XR) 20 mg 24 hr capsule Take 1 capsule by mouth once daily for 30 days. - albuterol HFA (PROAIR HFA) 90 mcg/actuation inhaler Inhale 2 Puffs as instructed every 4 hours as needed. - amphetamine-dextroamphetamine XR (ADDERALL XR) 20 mg 24 hr capsule Take 1 capsule by mouth once daily for 30 days. No current facility-administered medications on file prior t o visit. Social History Social History Tobacco Use - Smoking status: Former Smoker Packs/day: 1.00 Years: 7.00 Pack years: 7.00 Last attempt to quit: 05/14/2016 Years since quittin.9 - Smokeless tobacco: Never Used Substance Use Topics - Alcohol use: Yes Comment: Occasionally - Drug use: No EXAM: BP 138/88 Pulse 78 Resp 16 Wt 92.5 kg (204 lb) BMI 3 1.76 kg/m? General Appearance: Well alix earing, alert, in no acute distress, well-hydrated, well nourished. and Obese. Lungs: lungs clear to auscultation. No wheezing, rhonchi, ra les. Heart: RRR without murmur, gallop, or rubs. No ectopy. Health Maintenance List INFLUENZA(1) due on 11/01/2018 PAP TESTING due on 09/30/2021 DTAP,TDAP,TD(8 - Td) due on 10/16/2026 ONE PNEUMOVAX PRIOR TO AGE 65 Completed HPV VACCINE Completed HIV SCREENING Completed Data reviewed PDMP website checked and validated. All prescrip tions have been APPROPRIATELY filled. No suspicious activity was identified. by Heaven Ang MD ASSESSMENT/PLAN: 1. Attention deficit hyperactivity disorder (ADHD), unspec ified ADHD type - ICD9: 314.01, ICD10: F90.9 (primary diagnosis) Controlled -Continue current medications. - DEXTROAMPHETAMINE-AMPHETAMINE ER 20 MG 24HR CAPSULE,EXTEND RELEASE 2. Acne vulgaris - ICD9: 706.1, ICD10: L70.0 Continue current medications. Continue with [facility] Follow up in 6 months. I agree with the Chief Complaint, ROS, and Past Histories in dependently gathered by the clinical lab support service tech and the remaining scr ibed note accurately describes my personal service to the patient. Heaven Ang MD The documentation for this note was completed by Clau Oliveira Ma acting as scribe for Heaven Ang MD. May 10, 2019 4:32 PM. Clau Oliveira Ma Referring Provider: ENRICO QIU ([facility]) [[id number]] Allergies As of Date: 05/10/2019 (No Known Allergies) Date Reviewed: 05/10/2019 Reviewed by: Clau Oliveira Ma - Fully Assessed Reason for Visit: 6 Month Exam [189] Cmt: ADHD Primary Visit Diagnosis:Attention deficit hyperactivity diso rder (ADHD), unspecified ADHD type [F90.9] Other Visit Diagnosis:Acne vulgaris [L70.0] Order(s):ISOtretinoin (ACCUTANE) 10 mg capsuleTake 1 capsu le by mouth twice daily. [facility] Prescriptions as of 05/10/2019 Sig: DEXTROAMPHETAMINE-AMPHETAMINE* Take 1 capsule by mouth once * ALBUTEROL SULFATE HFA 90 MCG/* Inhale 2 Puffs as instructed * ISOTRETINOIN 10 MG CAPSULE Take 1 capsule by mouth twice* Problem List As Of Date 05/10/2019 Noted Resolved Depression [F32.9] 06/24/2008 ADHD (Attention Deficit Hyperactivity Disorder)*08/03/2009 Missed [O02.1] 07/18/2010 08/06/2010 Anxiety disorder [F41.9] 01/05/2013 Tobacco use [Z72.0] Obesity [E66.9] Obesity in [O99.210] 05/23/2016 01/13/2017 More... Quit smoking [Z87.891] 05/23/2016 More... History of depression [Z86.59] 05/23/2016 More... Patient requested diagnostic testing [Z01.89] 05/23/201604/2016 More... Single umbilical artery [Q27.0] 08/26/2016 01/13/2017 Hypertension in , pre-eclampsia, deliv*01/13/2017 Prescriptions ordered this encounter Disp Refills Start End ISOTRETINOIN 10 MG CAPSULE 05/10/2019 Class: Med Update Route: ORAL Sig: Take 1 capsule by mouth twice daily . [facility] Medications Discontinued During This Encounter amphetamine-dextroamphetamine XR (AD* 30 c* 0 02/22/201905/09 Class: Print RX Route: ORAL Sig: Take 1 capsule by mouth once daily for 30 days. Disc: Reason for discontinue is not on file. Disposition: Return in about 6 months (around 11/10/2019). Follow-up and Disposition History Recorded Encounter Status:Closed by HEAVEN ANG MD on 05/11/19 obsolete on 2019-04 OBSOLETE Refill (FAMPWS) Normal 04-27-2019 [facility] ISIDRA MORELAND ([id number]) 1995 [facility] Date Time Provider Department ([id number]) 04/27/19 ENRICO QIU) SANDIEWS During your visit today, we recorded the following informati on about you: Rey Irizarry LPN 04/28/2019 10:51 AM Signed Patient phones requesting refills as follows: Pending Prescriptions Disp Refills DEXTROAMPHETAMINE-AMPHETAMINE ER 20 MG 24HR CAPS ULE,EXTEND RELEASE 30 capsule 0 Sig: Take 1 capsule by mouth once daily for 30 days. GISSEL Class: C-II SCOTT: No Please review and advise. Rey Qiu APRN.CNP 04/28/2019 10:57 AM Signed Approved. [facility] website checked and validated. All prescrip tions have been APPROPRIATELY filled. No suspicious activity was identified. 04/28/2019 by Enrico Qiu APRN.CNP The following approved medic ation requests have been transmitted electronically. Signed Prescriptions Disp Refills amphetamine-dextroamphetamine XR (ADDERALL XR) 2 0 mg 24 hr capsule 30 capsule 0 Sig: Take 1 capsule by mouth once daily for 30 days. GISSEL Class: C-II SCOTT: No Authorizing Provider: ENRICO QIU) Enrico Qiu APRN.CNP Allergies As of Date: 04/27/2019 (No Known Allergies) Date Reviewed: 11/09/2018 Reviewed by: Clau Oliveira Ma - Fully Assessed Reason for Visit: Refill Request [94] Visit Diagnosis:Attention deficit hyperactivity disord er (ADHD), unspecified ADHD type [F90.9] Order(s):amphetamine-dextroamphetamine XR (ADDERALL XR) 20 m g 24 hr capsuleTake 1 capsule by mouth once daily for 30 days.Disp: 30 capsuleRfl: 0 Prescriptions as of 04/27/2019 Sig: DEXTROAMPHETAMINE-AMPHETAMINE* Take 1 capsule by mouth once * ALBUTEROL SULFATE HFA 90 MCG/* Inhale 2 Puffs as instructed * Problem List As Of Date 04/27/2019 Noted Resolved Depression [F32.9] 06/24/2008 ADHD (Attention Deficit Hyperactivity Disorder)*08/03/2009 Missed [O02.1] 07/18/2010 08/06/2010 Anxiety disorder [F41.9] 01/05/2013 Tobacco use [Z72.0] Obesity [E66.9] Obesity in [O99.210] 05/23/2016 01/13/2017 More... Quit smoking [Z87.891] 05/23/2016 More... History of depression [Z86.59] 05/23/2016 More... Patient requested diagnostic testing [Z01.89] 05/23/201604/2016 More... Single umbilical artery [Q27.0] 08/26/2016 01/13/2017 Hypertension in , pre-eclampsia, deliv*01/13/2017 Prescriptions ordered this encounter Disp Refills Start End DEXTROAMPHETAMINE-AMPHETAMINE ER 20 * 30 c* 0 04/28/2019 Route: ORAL Sig: Take 1 capsule by mouth once daily for 30 days. Medications Discontinued During This Encounter amphetamine-dextroamphetamine XR (AD* 30 c* 0 03/30/201904/28 Route: ORAL Sig: Take 1 capsule by mouth once daily for 30 days. Disc: Reason for discontinue is not on file. Encounter Status:Closed by ENRICO QIU CNP on 04/28/19 obsolete on 2019-03 OBSOLETE Refill (FAMPWS) Normal 03-30-2019 [facility] ISIDRA MORELAND ([id number]) 1995 [facility] Date Time Provider Department ([id number]) 03/30/19 ENRICO QIU) SANDIEWS During your visit today, we recorded the following informati on about you: Aarti Logan MA, MA 03/30/2019 8:39 AM Signed Last Refill:02/22/19 Qty:30 Refills:0 Next Scheduled Office Visit:05/10/19 Last Office Visit:11/09/18 OBED Wick APRN.CNP 03/30/2019 8:42 AM Signed Approved. PDMP website checked and validated. All prescrip tions have been APPROPRIATELY filled. No suspicious activity was identified. 03/30/2019 by Enrico Qiu APRN.CNP The following approved medic ation requests have been transmitted electronically. Signed Prescriptions Disp Refills amphetamine-dextroamphetamine XR (ADDERALL XR) 2 0 mg 24 hr capsule 30 capsule 0 Sig: Take 1 capsule by mouth once daily for 30 days. GISSEL Class: C-II SCOTT: No Authorizing Provider: ENRICO QIU (OBI) Enrico Qiu APRN.CNP Allergies As of Date: 03/30/2019 (No Known Allergies) Date Reviewed: 11/09/2018 Reviewed by: Clau Oliveira Ma - Fully Assessed Reason for Visit: Refill Request [94] Visit Diagnosis:Attention deficit hyperactivity disord er (ADHD), unspecified ADHD type [F90.9] Order(s):amphetamine-dextroamphetamine XR (ADDERALL XR) 20 m g 24 hr capsuleTake 1 capsule by mouth once daily for 30 days.Disp: 30 capsuleRfl: 0 Prescriptions as of 03/30/2019 Sig: DEXTROAMPHETAMINE-AMPHETAMINE* Take 1 capsule by mouth once * ALBUTEROL SULFATE HFA 90 MCG/* Inhale 2 Puffs as instructed * DEXTROAMPHETAMINE-AMPHETAMINE* Take 1 capsule by mouth once * Problem List As Of Date 03/30/2019 Noted Resolved Depression [F32.9] 06/24/2008 ADHD (Attention Deficit Hyperactivity Disorder)*08/03/2009 Missed [O02.1] 07/18/2010 08/06/2010 Anxiety disorder [F41.9] 01/05/2013 Tobacco use [Z72.0] Obesity [E66.9] Obesity in [O99.210] 05/23/2016 01/13/2017 More... Quit smoking [Z87.891] 05/23/2016 More... History of depression [Z86.59] 05/23/2016 More... Patient requested diagnostic testing [Z01.89] 05/23/201604/2016 More... Single umbilical artery [Q27.0] 08/26/2016 01/13/2017 Hypertension in , pre-eclampsia, deliv*01/13/2017 Prescriptions ordered this encounter Disp Refills Start End DEXTROAMPHETAMINE-AMPHETAMINE ER 20 * 30 c* 0 03/30/2019 Route: ORAL Sig: Take 1 capsule by mouth once daily for 30 days. Medications Discontinued During This Encounter amphetamine-dextroamphetamine XR (AD* 30 c* 0 12/25/201803/04 Class: Print RX Route: ORAL Sig: Take 1 capsule by mouth once daily for 30 days. Disc: Reason for discontinue is not on file. Encounter Status:Closed by ENRICO QIU CNP on 03/30/19 OBSOLETE Refill (FAMPWS) Normal 03-30-2019 [facility] ISIDRA MORELAND ([id number]) 1995 [facility] Date Time Provider Department ([id number]) 03/30/19 ENRICO QIU (OBI) FAMPWS During your visit today, we recorded the following informati on about you: Jacki Mooney LPN 03/30/2019 8:18 AM Signed Patient has been identified by name and date of : Yes Patient phones for refill(s): Pending Prescriptions Disp Refills ALBUTEROL SULFATE HFA 90 MCG/ACTUATION AEROSOL INHALER 1 Inh aler 5 Sig: Inhale 2 Puffs as instructed every 4 hours as needed. SCOTT: No Date of last office visit in primary care: 11/09/18 next apt Last 2 Encounter Wt Readings: Date: Wt: 11/09/2018 101.6 kg (224 lb) 09/30/2018 100.7 kg (222 lb) Previous labs/tests for medication: Not applicable Please advise. Thank you. Jacki Julio DNP.ENGLISH AS A SECOND LANGUAGE TEACHER, MOTOR AND CHASSIS INSPECTOR.ENGLISH AS A SECOND LANGUAGE TEACHER 03/30/2019 8:29 AM Signed The following approved medic ation requests have been transmitted electronically. Pending Prescriptions Disp Refills ALBUTEROL SULFATE HFA 90 MCG/ACTUATION AEROSOL INHALER 1 Inh aler 5 Sig: Inhale 2 Puffs as instructed every 4 hours as needed. SCOTT: No Bienvenido Julio DNP.CNP Allergies As of Date: 03/30/2019 (No Known Allergies) Date Reviewed: 11/09/2018 Reviewed by: Clau Oliveira Ma - Fully Assessed Reason for Visit: Refill Request [94] Visit Diagnosis:Wheezing on auscultation [R06.2] Order(s):albuterol HFA (PROAIR HFA) 90 mcg/actua tion inhalerInhale 2 Puffs as instructed every 4 hours as needed.Disp: 1 InhalerRfl: 5 Prescriptions as of 03/30/2019 Sig: ALBUTEROL SULFATE HFA 90 MCG/* Inhale 2 Puffs as instructed * DEXTROAMPHETAMINE-AMPHETAMINE* Take 1 capsule by mouth once * DEXTROAMPHETAMINE-AMPHETAMINE* Take 1 capsule by mouth once * Problem List As Of Date 03/30/2019 Noted Resolved Depression [F32.9] 06/24/2008 ADHD (Attention Deficit Hyperactivity Disorder)*08/03/2009 Missed [O02.1] 07/18/2010 08/06/2010 Anxiety disorder [F41.9] 01/05/2013 Tobacco use [Z72.0] Obesity [E66.9] Obesity in [O99.210] 05/23/2016 01/13/2017 More... Quit smoking [Z87.891] 05/23/2016 More... History of depression [Z86.59] 05/23/2016 More... Patient requested diagnostic testing [Z01.89] 05/23/201604/2016 More... Single umbilical artery [Q27.0] 08/26/2016 01/13/2017 Hypertension in , pre-eclampsia, deliv*01/13/2017 Prescriptions ordered this encounter Disp Refills Start End ALBUTEROL SULFATE HFA 90 MCG/ACTUATI* 1 In* 5 03/30/2019 Cmt: Generic or brand: dispense inhaler preferre d by patient/insurance unless SCOTT flag is selected. Route: INHALATION Sig: Inhale 2 Puffs as instructed every 4 hours as needed. Medications Discontinued During This Encounter albuterol HFA (PROAIR HFA) 90 mcg/ac* 1 In* 5 08/21/201703/30 Route: INHALATION Sig: Inhale 2 Puffs as instructed every 4 hours as needed. Disc: Reason for discontinue is not on file. Encounter Status:Closed by BIENVENIDO JULIO DNP, CNP on 03/30/19 obsolete on 2019-01 OBSOLETE Refill (FAMPWS) Normal 02-22-2019 [facility] ISIDRA MORELAND ([id number]) 1995 [facility] Date Time Provider Department ([id number]) 02/22/19 HEAVEN ANGWS During your visit today, we recorded the following informati on about you: Clau Oliveira Ma 02/22/2019 12:52 PM Signed Last office visit: 11/09/18 F/u scheduled: 05/10/19 Last refilled on: Adderall #30 on 01/27/19 Clau Ang MD 02/22/2019 1:32 PM Signed OK to refill as ordered MD Nando Sommer MA 02/22/2019 2:46 PM Signed Rx taken to med recs and pt notified via [employer]. Nando Domínguez MA Allergies As of Date: 02/22/2019 (No Known Allergies) Date Reviewed: 11/09/2018 Reviewed by: Clau Oliveira Ma - Fully Assessed Reason for Visit: Refill Request [94] Visit Diagnosis:Attention deficit hyperactivity disord er (ADHD), unspecified ADHD type [F90.9] Order(s):amphetamine-dextroamphetamine XR (ADDERALL XR) 20 m g 24 hr capsuleTake 1 capsule by mouth once daily for 30 days.Disp: 30 capsuleRfl: 0 Prescriptions as of 02/22/2019 Sig: DEXTROAMPHETAMINE-AMPHETAMINE* Take 1 capsule by mouth once * DEXTROAMPHETAMINE-AMPHETAMINE* Take 1 capsule by mouth once * ALBUTEROL SULFATE HFA 90 MCG/* Inhale 2 Puffs as instructed * Problem List As Of Date 02/22/2019 Noted Resolved Depression [F32.9] 06/24/2008 ADHD (Attention Deficit Hyperactivity Disorder)*08/03/2009 Missed [O02.1] 07/18/2010 08/06/2010 Anxiety disorder [F41.9] 01/05/2013 Tobacco use [Z72.0] Obesity [E66.9] Obesity in [O99.210] 05/23/2016 01/13/2017 More... Quit smoking [Z87.891] 05/23/2016 More... History of depression [Z86.59] 05/23/2016 More... Patient requested diagnostic testing [Z01.89] 05/23/201604/2016 More... Single umbilical artery [Q27.0] 08/26/2016 01/13/2017 Hypertension in , pre-eclampsia, deliv*01/13/2017 Prescriptions ordered this encounter Disp Refills Start End DEXTROAMPHETAMINE-AMPHETAMINE ER 20 * 30 c* 0 02/22/2019 Class: Print RX Route: ORAL Sig: Take 1 capsule by mouth once daily for 30 days. Medications Discontinued During This Encounter amphetamine-dextroamphetamine XR (AD* 30 c* 0 01/27/2019 Class: Print RX Route: ORAL Sig: Take 1 capsule by mouth once daily for 30 days. Disc: Reason for discontinue is not on file. Encounter Status:Closed by NANDO DOMÍNGUEZ MA on 02/22/19 obsolete on 2019-01 OBSOLETE Refill (FAMPWS) Normal 01-26-2019 [facility] ISIDRA MORELAND ([id number]) 1995 [facility] Time Provider Department ([id number]) 01/26/19 ENRICO QIU (ENGLISH AS A SECOND LANGUAGE TEACHER) FAMPWS During your visit today, we recorded the following informati on about you: Krys Junior Ma 01/27/2019 9:14 AM Signed Pt's last visit with pcp 11/09/18 with FARZAD Last refill was 12/25/18 with 30 and 0 refills Last oarrs report: see pt's chart Follow up appt: 05/10/19 Heaven Ang MD 01/27/2019 9:20 AM Signed OK to refill as ordered MD Nando Sommer MA 01/27/2019 11:59 AM Signed Rx to med recs, notified can filler picker at Med Rec[facility] after 1:30 pm today. Nando Domínguez MA Allergies As of Date: 01/26/2019 (No Known Allergies) Date Reviewed: 11/09/2018 Reviewed by: Clau Oliveira Ma - Fully Assessed Reason for Visit: Refill Request [94] Visit Diagnosis:Attention deficit hyperactivity disord er (ADHD), unspecified ADHD type [F90.9] Order(s):amphetamine-dextroamphetamine XR (ADDERALL XR) 20 m g 24 hr capsuleTake 1 capsule by mouth once daily for 30 days.Disp: 30 capsuleRfl: 0 Prescriptions as of 01/26/2019 Sig: DEXTROAMPHETAMINE-AMPHETAMINE* Take 1 capsule by mouth once * ALBUTEROL SULFATE HFA 90 MCG/* Inhale 2 Puffs as instructed * Problem List As Of Date 01/26/2019 Noted Resolved Depression [F32.9] 06/24/2008 ADHD (Attention Deficit Hyperactivity Disorder)*08/03/2009 Missed [O02.1] 07/18/2010 08/06/2010 Anxiety disorder [F41.9] 01/05/2013 Tobacco use [Z72.0] Obesity [E66.9] Obesity in [O99.210] 05/23/2016 01/13/2017 More... Quit smoking [Z87.891] 05/23/2016 More... History of depression [Z86.59] 05/23/2016 More... Patient requested diagnostic testing [Z01.89] 05/23/201604/2016 More... Single umbilical artery [Q27.0] 08/26/2016 01/13/2017 Hypertension in , pre-eclampsia, deliv*01/13/2017 Prescriptions ordered this encounter Disp Refills Start End DEXTROAMPHETAMINE-AMPHETAMINE ER 20 * 30 c* 0 01/27/2019 Class: Print RX Route: ORAL Sig: Take 1 capsule by mouth once daily for 30 days. Medications Discontinued During This Encounter amphetamine-dextroamphetamine XR (AD* 30 c* 0 11/27/201801/02 Class: Print RX Route: ORAL Sig: Take 1 capsule by mouth once daily for 30 days. Disc: Reason for discontinue is not on file. Encounter Status:Closed by NANDO DOMÍNGUEZ MA on 01/27/19 Encounters Date Type Reason Provider Location 11-10-2019 - [facility] [place] [facility] hyperactivity disorder [place] Comment: Attention deficit hyperactiv ity disorder (ADHD), unspecified ADHD type (Primary Dx); Acne vulgaris; Medication monitoring encoun ter 11-30-2019 - Refill Attention deficit [place] [facility] 11-30-2019 hyperactivity disorder [place] Comment: Refill Request 11-01-2019 - Refill Attention deficit [place] [facility] 11-01-2019 hyperactivity disorder [place] Comment: Refill Request Plan of Treatment Plan Description Date Location DTAP,TDAP,TD (8 - Td) DTAP,TDAP,TD (8 - Td) 10-16-2026 - [facility] 10-16-2026 ([id number]) PAP TESTING PAP TESTING 09-30-2021 - [facility] 09-30-2021 ([id number]) INFLUENZA (#1) INFLUENZA (#1) 2019 - [facility] 11-02-2019 ([id number]) HEPATITIS C SCREENING HEPATITIS C SCREENING 01-22-2012 - [facility] 01-22-2012 ([id number]) CBC + DIFF CBC + DIFF Lab Routine 11-09-2020 [facility] Attention deficit (31593) hyperactivity disorder (ADHD), unspecified ADHD type Acne vulgaris Medication monitoring encounter 1 Occurrences starting 11/10/2019 until 11/09/2020 Comment: 1 Occurrences starting 11/09 until 11/09/2020 CMP (CMP) (FOR REMOTE CMP (CMP) (FOR REMOTE [facility] 11-09-2020 [facility] ([id number]) [facility] USE) USE) Lab Routine Attention deficit hyperactivity disorder (ADHD), unspecified ADHD type Acne vulgaris Medication monitoring encounter 1 Occurrences starting 11/10/2019 until 11/09/2020 Comment: 1 Occurrences starting 11/09 until 11/09/2020 Immunizations Vaccine Notes Status Date Location DTaP (Age<7) diphtheria, tetanus (completed) 04-30-1999 [facility] toxoids and acellular 04-30-1999 ([id number] ) pertussis vaccine DTaP + HIB DTaP-Haemophilus (completed) 07-21-1995 [facility]inic influenzae type b 07-21-1995 (05781) conjugate vaccine DTaP + HIB DTaP-Haemophilus (completed) 1994 [facility]inic influenzae type b 1994 (34090) conjugate vaccine DTaP + HIB DTaP-Haemophilus (completed) 1994 [facility]inic influenzae type b 1994 (26874) conjugate vaccine DTaP + HIB DTaP-Haemophilus (completed) 1994 [facility]inic influenzae type b 1994 (32802) conjugate vaccine Hib - 4 Dose Schedule haemophilus influenzae (completed) 6 - [facility] type b vaccine, [facility] 07-21-1995 (13766) conjugate Hib - 4 Dose Schedule haemophilus influenzae (completed) 5 - [facility] type b vaccine, [facility] 1994 (36831) conjugate Hib - 4 Dose Schedule haemophilus influenzae (completed) - [facility] type b vaccine, [facility] 1994 (14538) conjugate Hib - 4 Dose Schedule haemophilus influenzae (completed) - [facility] type b vaccine, [facility] 1994 (83591) conjugate Hepatitis A vaccine hepatitis A vaccine, (completed) 12-16-2011 - [facility] unspecified 12-16-2011 (79397) formulation Hepatitis A vaccine hepatitis A vaccine, (completed) 06-15-2009 - [facility] unspecified 06-15-2009 (17805) formulation Hepatitis B Peds/Adol hepatitis B vaccine, (completed) 1994 - [facility] pediatric or 1994 (57188) pediatric/adolescent dosage Hepatitis B Peds/Adol hepatitis B vaccine, (completed) 1994 - [facility] pediatric or 1994 (07565) pediatric/adolescent dosage Hepatitis B Peds/Adol hepatitis B vaccine, (completed) 1994 - [facility] pediatric or 1994 (69378) pediatric/adolescent dosage NEGATED: Highlighted human papilloma virus (completed) 02-09-2013 - [facility] row has not vaccine, quadrivalent 02-09-2013 (65949 ) occurred!HUMAN PAPILLOMAVIRUS QUADRIVALENT - Male and Females HUMAN PAPILLOMAVIRUS human papilloma virus (completed) 01-05-2013 - [facility] QUADRIVALENT - Male vaccine, quadrivalent 01-05-2013 (96007) and Females HUMAN PAPILLOMAVIRUS human papilloma virus (completed) 12-16-2011 - [facility] QUADRIVALENT - Male vaccine, quadrivalent 12-16-2011 (68828) and Females HUMAN PAPILLOMAVIRUS human papilloma virus (completed) 06-15-2009 - [facility] QUADRIVALENT - Male vaccine, quadrivalent 06-15-2009 (11400) and Females Influenza Vaccine, influenza virus (completed) 01-05-2013 - [facility] Split-Non Spec vaccine, unspecified 01-05-2013 (4419 5) formulation Influenza Vaccine, influenza virus (completed) 12-16-2011 - [facility] Split-Non Spec vaccine, unspecified 12-16-2011 (4419 5) formulation Influenza Vaccine, influenza virus (completed) 01-24-1997 - [facility] Split-Non Spec vaccine, unspecified 01-24-1997 (4419 5) formulation Influenza Seasonal Inj influenza, injectable, (completed) 12-18-19 16 - [facility] Quadrivalent Age 3+ quadrivalent, contains 12-18-2015 (33731) preservative Influenza Seasonal Inj influenza, injectable, (completed) 12-23-19 14 - [facility] Quad Age 6 Mo-64 Yrs quadrivalent, 12-22-2013 (25015 ) Pres Free preservative free Influenza Seasonal Inj influenza, seasonal, (completed) 12-04-2016 - [facility] Age 3+ injectable 12-04-2016 (01325) MMR measles, mumps and (completed) 04-30-1999 - [facility] rubella virus vaccine 04-30-1999 (94333 ) MMR measles, mumps and (completed) 02-07-1995 - [facility] rubella virus vaccine 02-07-1995 (15721 ) Meningococcal Conj IM Meningococcal, MCV4, (completed) 01-05-2013 - [facility] Unspec unspecified conjugate 01-05-2013 (91312 ) formulation(groups A, C, Y and W-135) Meningococcal Conj IM Meningococcal, MCV4, (completed) 10-28-2006 - [facility] Unspec unspecified conjugate 10-28-2006 (59692 ) formulation(groups A, C, Y and W-135) [facility]neum[facility] pneum[facility] ([facility]) [facility] polys[facility] 12-18-2015 (82808) vaccine, 23 valent IPV poliovirus vaccine, (completed) 04-30-1999 - [facility] inactivated 04-30-1999 (48873) Tdap (Age 7+) tetanus toxoid, (completed) 10-16-2016 - [facility]inic reduced diphtheria 10-16-2016 (87504) toxoid, and acellular pertussis vaccine, adsorbed Tdap (Age 7+) tetanus toxoid, (completed) 10-28-2006 - [facility]inic reduced diphtheria 10-28-2006 (14888) toxoid, and acellular pertussis vaccine, adsorbed OPV trivalent poliovirus (completed) 1994 - [facility] vaccine, live, oral 1994 (10608) OPV trivalent poliovirus (completed) 1994 - [facility] vaccine, live, oral 1994 (46560) OPV trivalent poliovirus (completed) 1994 - [facility] vaccine, live, oral 1994 (59183) Varicella Vaccine varicella virus (completed) 06-15-2009 - [facility] vaccine 06-15-2009 (12975) Varicella Vaccine varicella virus (completed) 01-24-1997 - [facility] vaccine 01-24-1997 (15704) Payers Payer Name Policy Number Location [facility] MEDICAID [id number] [facility] (44 195) [employer] [id number] [facility] (44 195) The following information is from the original human readable contentNo Payer Records Found Social History Type Social History Date Location Description Tobacco smoking status Former smoker 05-10-2019 - [facility] NHIS 11-10-2019 (63948) History of tobacco use Current smoker 05-14-2016 [facility] (14168) Cigarettes smoked 05-10-2019 - [facility] ic current (pack per day) 11-10-2019 (41754) - Reported Tobacco use and Never used 05-10-2019 - [facility] exposure 11-10-2019 (60622) Alcohol intake Current drinker of 05-10-2019 - [facility] alcohol (finding) 11-10-2019 (04747) Alcohol Comment Occasionally 09-30-2018 - [facility] 09-30-2018 (39771) Sex Assigned At Not on file [facility] (28049) Exposure to SARS-CoV-2 Not sure [facility] (event) (52493) The following information is from the original human CardioDxable contentNo Social History Records Found History of Past Illness Problem Noted Date Resolved Date Single umbilical artery 08/26/2016 01/13/2017 Obesity in 05/23/2016 01/13/2017 Overview: 05/23/2016Patient is obese. Will plan on GCT in early . TKRN Patient requested diagnostic testing 05/23/201604/2016 Overview: 05/23/2016Patient desires nuchal ultrasound. Considering CF carrier screening testing. TKRN Missed 07/18/2010 08/06/2010 Problem Noted Date Resolved Date Single umbilical artery 08/26/2016 01/13/2017 Obesity in 05/23/2016 01/13/2017 Overview: 05/23/2016Patient is obese. Will plan on GCT in early . TKRN Patient requested diagnostic testing 05/23/201604/2016 Overview: 05/23/2016Patient desires nuchal ultrasound. Considering CF carrier screening testing. TKRN Missed 07/18/2010 08/06/2010 Assessments Diagnosis Attention deficit hyperactivity disorder (ADHD), unspecified ADHD type Diagnosis Attention deficit hyperactivity disorder (ADHD), unspecified ADHD type - Primary Acne vulgaris Other acne Medication monitoring encounter Encounter for therapeutic drug monitorin karyn History of Present Illness YoanaHeaven Shanique - 11/10/2019 5:40 PM EDT This Team Access Model visit is a virtual encounter via Qzzrom. It required patient-provider interaction for the medical decision making as documented below. Chief Complaint Patient presents with: F/U 6 Month HPI:This Team Access Model visit is a virtual encounter. It required patient- provider interaction for the medical decision making as documented below. Patient was offered a virtual/telemedicine appointment in lieu of an office visit due to recommendations to reduce patient exposure to COVID-19. Patient is aware of limitations of performing the visit without a face to face visit in the office setting and agrees. 6 mo f/u. ADHD - Doing well with use of Adderall XR 20 mg once daily. Pt reports that she is doing well on regimen and is able to stay focused. Derm - Started new regimen of Minocycline 100 mg once daily. Reports that she never started the Accutane that was prescribed previously. Reports her boss tested + for COVID - not in the last month. Pt denies being tested, having symptomsor travel. Requests labs; has not had done since she had preeclampsia with her daughter almost three years ago. Past medical history, appointments, medications, allergies reviewed. Previous Medical History PAST MEDICAL HISTORY Diagnosis Date ? Acne ? ADHD (attention deficit hyperactivity disorder) ? Anemia ? Anxiety disorder 01/05/2013 ? Asthma unknown type ? Chlamydia 2014 ? Depression ? Hypertension in , pre-eclampsia, delivered 01/13/2017 ? Obesity ? Tobacco use Previous Surgical History PAST SURGICAL HISTORY Procedure Laterality Date ? OTHER 2010 Eye muscle surgery ? SURG RX MISSED ABORTN,1ST TRI 07/20/10 D&C, hemorrhage EBL 1000 cc Family History FAMILY HISTORY Problem Relation Age of Onset ? Heart Maternal Grandfather ? Heart Paternal Grandfather ? Hypertension Mother ? other (Sleep apnea) Mother ? Coronary Artery Disease Father ? COPD Father ? No Known Problems Sister ? No Known Problems Sister ? No Known Problems Brother ? No Known Problems Brother ? Hypertension Maternal Grandmother ? Heart Paternal Grandmother ? Cancer Maternal Aunt ? Cancer Paternal Aunt ? No Known Problems Daughter Patient Allergies ALLERGIES No Known Allergies Current Medications Current Outpatient Medications on File Prior to Visit Medication Sig ? amphetamine-dextroamphetamine XR (ADDERALL XR) 20 mg 24 hr capsule Take 1 capsule by mouth once daily for 30 days. ? ISOtretinoin (ACCUTANE) 10 mg capsule Take 1 capsule by mouth twice daily. [facility] ? albuterol HFA (PROAIR HFA) 90 mcg/actuation inhaler Inhale 2 Puffs as instructed every 4 hours as needed. No current facility-administered medications on file prior to visit. Social History Social History Tobacco Use ? Smoking status: Former Smoker Packs/day: 1.00 Years: 7.00 Pack years: 7.00 Quit date: 05/14/2016 Years since quittin.4 ? Smokeless tobacco: Never Used Substance Use Topics ? Alcohol use: Yes Comment: Occasionally ? Drug use: No EXAM: LMP 09/19/2018 (Exact Date) General Appearance: Well appearing, alert, in no acute distress, well-hydrated, well nourished.. Health Maintenance List HEPATITIS C SCREENING due on 01/22/2012 INFLUENZA(1) due on 11/02/2019 PAP TESTING due on 09/30/2021 DTAP,TDAP,TD(8 - Td) due on 10/16/2026 ONE PNEUMOVAX PRIOR TO AGE 65 Completed HPV VACCINE Completed MENINGOCOCCAL CONJUGATE Completed HIV SCREENING Completed Data reviewed EPIC ASSESSMENT/PLAN: 1. Attention deficit hyperactivity disorder (ADHD), unspecified ADHD type - ICD9: 314.01, ICD10: F90.9 (primary diagnosis) Continue current medications. - CMP (CMP) (FOR REMOTE [facility] USE) - CBC + DIFF 2. Acne vulgaris - ICD9: 706.1, ICD10: L70.0 - CMP (CMP) (FOR REMOTE [facility] USE) - CBC + DIFF 3. Medication monitoring encounter - ICD9: V58.83, ICD10: Z51.81 - CMP (CMP) (FOR REMOTE [facility] USE) - CBC + DIFF Notify of lab results Follow up in 6 months I agree with the Chief Complaint, ROS, and Past Histories independently gathered by the clinical lab support service tech and the remaining scribed note accurately describes my personal service to the patient. Heaven Ang MD The documentation for this note was completed by Nando Domínguez MA acting as scribe for Heaven Ang MD. November 10, 2019 4:49 PM. Nando Domínguez MA documented in this encounter Summary Purpose Family History No Family History Records Found Advance Directives No Advanced Directives Records Found Additional Source Comments FOR RECORDS PERTAINING TO PATIENTS WHO ARE OR HAVE BEEN ENROLLED IN A CHEMICAL DEPENDENCY/SUBSTANCE ABUSE PROGRAM, SOME INFORMATION MAY BE OMITTED. This clinical summary was aggregated from multiple sources. Caution should be exercised in using it in the provision of clinical care. This summary normalizes information from multiple sources, and as a consequence, information in this document may materially changethe coding, format and clinical context of patient data. In addition, data may be omittedin some cases. CLINICAL DECISIONS SHOULD BE BASED ON THE PRIMARY CLINICAL RECORDS. [facility] provides no warranty or guarantee of the accuracy or completeness of information in this document. UNRECOGNIZED CONTENT PROVIDED BELOW FOR UNRECOGNIZED SECTION Source Comments In the event this information is protected by the Federal Confidentiality of Alcohol and Drug Abuse Patient Records regulations: The Federal rules restrict any use of the information to criminally investigate or prosecute any alcohol or drug abuse patient.[facility] the event this information is protected by the Federal Confidentiality of Alcohol and Drug Abuse Patient Records regulations: The Federal rules restrict any use of the information to criminally investigate or prosecute any alcohol or drug abuse patient.[facility] the event this information is protected by the Federal Confidentiality of Alcohol and Drug Abuse Patient Records regulations: The Federal rules restrict any use of the information to criminally investigate or prosecute any alcohol or drug abuse patient.[facility] UNRECOGNIZED CONTENT PROVIDED BELOW FOR UNRECOGNIZED SECTION Reason for Visit Reason Onset Date Comments Refill Request 11/01/2019 Reason Comments F/U 6 Month Reason Onset Date Comments Refill Request 11/30/2019 UNRECOGNIZED CONTENT PROVIDED BELOW FOR UNRECOGNIZED SECTION Miscellaneous Notes Telephone Encounter - Clau Oliveira Ma - 11/01/2019 11:14 AM EDT The following approved medication requests have been transmitted electronically. Signed Prescriptions Disp Refills amphetamine-dextroamphetamine XR (ADDERALL XR) 20 mg 24 hr capsule 30 capsule 0 Sig: Take 1 capsule by mouth once daily for 30 days. GISSEL Class: C-II SCOTT: No Authorizing Provider: HEAVEN ANG Ma elephone Encounter - Heaven Ang - 11/01/2019 11:11 AM EDTOK to refill as ordered Heaven Ang MD elephone Encounter - Bessy Urbina Ma - 11/01/2019 8:46 AM EDT Patient has been identified by name and date of : Yes Pending Prescriptions Disp Refills DEXTROAMPHETAMINE-AMPHETAMINE ER 20 MG 24HR CAPSULE,EXTEND RELEASE 30 capsule 0 Sig: Take 1 capsule by mouth once daily for 30 days. GISSEL Class: C-II SCOTT: No RX INSTRUCTIONS: Patient aware RX will be sent to pharmacy. No need to notify patient. Bessy Urbina Ma Last ov: 05/2019 Last refill: 09/2019 No appointment scheduled documented in this encounterTelephone Encounter - Clau Oliveira Ma - 11/30/2019 11:25 AM EDT The following approved medication requests have been transmitted electronically. Signed Prescriptions Disp Refills amphetamine-dextroamphetamine XR (ADDERALL XR) 20 mg 24 hr capsule 30 capsule 0 Sig: Take 1 capsule by mouth once daily for 30 days. GISSEL Class: C-II SCOTT: No Authorizing Provider: HEAVEN ANG Ma elephone Encounter - Heaven Ang - 11/30/2019 11:22 AM EDTOK to refill as ordered Heaven Ang MD elephone Encounter - Bessy Urbina Ma - 11/30/2019 8:52 AM EDT Patient has been identified by name and date of : Yes Pending Prescriptions Disp Refills DEXTROAMPHETAMINE-AMPHETAMINE ER 20 MG 24HR CAPSULE,EXTEND RELEASE 30 capsule 0 Sig: Take 1 capsule by mouth once daily for 30 days. GISSEL Class: C-II SCOTT: No RX INSTRUCTIONS: Patient aware RX will be sent to pharmacy. No need to notify patient. Bessy Urbina Ma Last ov: 11/2019 Last refill; 11/01/2019 No appointment scheduled documented in this encounter UNRECOGNIZED CONTENT PROVIDED BELOW FOR UNRECOGNIZED SECTION INFORMATION SOURCE DATE CREATED AUTHOR AUTHOR'S ORGANIZATIO N 11/30/2019 [facility]
== END | disposition home or self-care (01) ==
LOC: MTLAB 16:54
PROVIDERS: PCP Family Medicine; Referring Provider Dermatology; Visit Provider Dermatology
DX: L70.0 Acne vulgaris (principal); Z79.899 Other long term (current) drug therapy
CPT/HCPCS: 81025

== ENCOUNTER → 2019-09-08 | Outpatient (CLI) | payer OTHER, MEDICAID, SELFPAY ==
[2016-12-02 09:58] VITALS: BMI 41.8
[2019-09-08 17:43] LABS: Internal QC Validated? YES +Cl - CLEAR BKGD; Pregnancy, Urine Negative Negative
== END | disposition home or self-care (01) ==
LOC: MTLAB 16:50
PROVIDERS: PCP Family Medicine; Referring Provider Dermatology; Visit Provider Dermatology
DX: L70.0 Acne vulgaris (principal); Z79.899 Other long term (current) drug therapy
CPT/HCPCS: 81025

== ENCOUNTER → 2020-08-03 12:05 | Outpatient (CLI) | payer MEDICAID, SELFPAY ==
[2016-12-02 09:58] VITALS: BMI 41.8
[2020-08-03 15:31] LABS: AST(SGOT) 18 U/L (15-37); Alanine Aminotransfer ALT/SGPT 33 U/L (13-56); Albumin, Serum 4.1 g/dL (3.2-5.0); Alkaline Phosphatase 80 U/L (45-117); Bilirubin, Direct 0.13 mg/dL (0.00-0.30); Cholesterol 206 mg/dL (200); Globulin 4.4 g/dL (2.2-4.2); High Density Lipoprotein 56 mg/dL; Protein, Total 8.5 g/dL (6.4-8.2); Triglycerides 106 mg/dL; Very Low Density Lipoprotein 21 mg/dL (5-40)
== END ==
PROVIDERS: PCP Family Medicine; Visit Provider Dermatology
DX: L70.0 Acne vulgaris (principal); Z79.899 Other long term (current) drug therapy
CPT/HCPCS: 36415; 80061; 80076

== ENCOUNTER 2021-02-07 16:47 | Emergency (ER) | payer MEDICAID, SELFPAY ==
[2021-02-07 16:50] VITALS: BP 155/100; PULSE 128; RESP 20; TEMP 37; O2SAT 98; BMI 30.7
[2021-02-07 17:04] VITALS: RESP 16
--- NOTE | 2021-02-07 17:05 | EDS_ITS ---
HPI HPI - GI History of Present Illness Chief Complaint: GI Bleed Informant: patient Abdominal Pain/Flank Pain Onset: Today Timing: Intermittent Current Severity: Mild Maximum Severity: Mild Nausea/Vomiting/Emesis GI Symptom: Negative for Nausea and Vomiting Diarrhea/Melena/Hematochezia GI Symptom: Negative for Diarrhea, Melena and Hematochezia Associated Symptoms Associated Symptoms: Negative for Dysuria, Frequency and Hematuria Narrative Narrative: 26-year-old female history of depression anxiety. On no blood thinners. Has chronic constipation. Today had some very mild rectal bleeding. She showed me a picture of the toilet bowl. No large clots. No other bleeding anywhere else. No gross hematuria. No vaginal bleeding. No bloody noses. No bruising. She has no bleeding disorders. Denies any pain. She is a chronic external hemorrhoid. She does not feel lightheaded or dizzy. Prior similar symptoms: Yes Recent Illness/Hospitalization: No PFSH PFSH Medical History ADHD Anxiety Depression Home Medications dextroamphetamine-amphetamine [Adderall] 20 mg PO DAILY 02/07/21 [History Last Taken Unknown] drospirenone-ethinyl estradiol [ELA (28)] 1 tab PO DAILY 02/07/21 [History Last Taken Unknown] isotretinoin [Claravis] 40 mg PO BID 02/07/21 [History Last Taken Unknown] spironolactone 100 mg PO BID 02/07/21 [History Last Taken Unknown] venlafaxine [Effexor] 75 mg PO DAILY 02/07/21 [History Last Taken Unknown] Allergy/AdvReac Type Severity Reaction Status Date / Time No Known Allergies Allergy Verified 02/07/21 16:50 Social History Smoking Status: Former smoker ROS ROS ED ROS Narrative Denies. Review of Systems ROS Unobtainable: Denies due to encephalopathy Constitutional Constitutional ED: Denies fever(s) ENT ENT ED: Denies ear pain Cardiovascular Cardiovascular: Denies chest pain Respiratory/Chest Respiratory/Chest: Denies dyspnea Gastrointestinal Gastrointestinal: Reports constipation; Denies abdominal pain, diarrhea or melena Genitourinary Genitourinary ED: Denies dysuria Musculoskeletal Musculoskeletal: Denies myalgias Integumentary Denies rash Neurologic Neurologic: Denies headache(s) Psychiatric Psychiatric: Denies depression Endocrine Endocrinology: Denies polyuria Hematologic/Lymphatic Hematologic/Lymphatic: Denies easy bleeding, easy bruising or lymphadenopathy Allergic/Immunologic Allergic/Immunologic ED: Denies urticaria EXAM Physical Exam Narrative Exam Narrative: 6-year-old female no acute distress vital signs stable afebrile. HEENT exam unremarkable. Neck nontender no lymphadenopathy. Lungs clear to auscultation bilaterally. Heart regular rhythm rate about 110 no murmur. Patient's tachycardic because of her anxiety not because of anemia. Abdomen soft nontender. Moving all 4 extremities. Nontender no edema. No bruising. Neurologically awake and alert. Rectal exam done female nurse present in the room. There is a small external hemorrhoid. Is not thrombosed, nor tender nor bleeding. There is no blood at this time. Rectal exam showed normal tone mild tenderness no mass. Light brown stool. No melena. Const Vital Signs: 02/07/21 16:50 Temperature 98.6 F Temperature Source Temporal Pulse Rate 128 H Respiratory Rate 20 H Blood Pressure 155/100 H Blood Pressure Mean 118 Pulse Ox 98 Oxygen Delivery Method Room Air Positive well nourished and well developed; Negative for cachectic, contractures or unkempt General Appearance ED: well developed and NAD; Negative for unkempt, cachectic, contractures or pallor Nutritional Appearance: Negative for cachectic HEENT Reports moist mucous membranes normocephalic and atraumatic Eyes PERRL and EOMs intact bilaterally General Eye ED: Negative for pale conjunctiva Neck no lymphadenopathy, supple and no JVD Resp normal respiratory effort and clear to auscultation bilaterally Auscultation: Negative for rales, rhonchi or wheezes Cardio regular rhythm, S1 normal heart sound, S2 normal heart sound and no murmurs Rate: tachycardic GI non-tender, non-distended and no masses GI Narrative: Rectal exam shows no blood or active bleeding. External hemo rrhoid nonthrombosed nontender no bleeding. Normal tone. No mass. Currently no blood. Brown stool. No melena. Auscultation: normoactive bowel sounds Palpation: soft; Negative for tender, guarding or rigid Back/Spine no CVA tenderness General Back: Negative for CVA tenderness Extremity full ROM General Extremety ED: Negative for edema or tenderness General Extremity: Negative for edema Neuro moves all extremities Sensorium / Orientation: alert, oriented to person, oriented to place and oriented to time; Negative for orientation impaired, confused, lethargic or stuporous Psych mental status grossly normal and thought process normal Appearance: Negative for unkempt Skin no wounds General Skin Exam: Negative for jaundice or pallor Lesions: no lesions Rashes: no rashes MDM MDM MDM Narrative Medical decision making narrative: 26-year-old female rectal bleeding. She showed me a picture on her phone showed a very small amount of blood in toilet bowl. I suspect this is either from seizure from her constipation or an internal hemorrhoid. She will hemorrhoidal cream and warm baths. Follow-up if not improving for possible endoscopy. Return if a lot worse. Discharge Plan Triage Chief Complaint: GI Bleed ED Provider: Konrad Flores Dx/Rx/DC Orders Clinical Impression: Bright red rectal bleeding, History of hemorrhoids, Constipation Instructions: ED Constipation (Adult), ED Hemorrhoids Prescriptions: No Action venlafaxine [Effexor] 75 mg Tablet 75 mg PO DAILY RF: 0 isotretinoin [Claravis] 40 mg Capsule 40 mg PO BID RF: 0 spironolactone 100 mg Tablet 100 mg PO BID RF: 0 dextroamphetamine-amphetamine [Adderall] 20 mg Tablet 20 mg PO DAILY RF: 0 drospirenone-ethinyl estradiol [ELA (28)] 3-0.02 mg Tablet 1 tab PO DAILY RF: 0 Primary Care Provider: Nash Lees Referrals: Nash Lees MD [Primary Care Provider] - 1 Week if not improving Activity Restrictions/Additional Instructions: Tender warm bathtub twice a day. Hemorrhoidal cream. Follow-up with your doctor if not improving. Meaning that if you have continued bleeding. Return if significantly worse bleeding with large clots. Disposition Disposition: Home, Self Care
[2021-02-07 17:23] VITALS: BP 155/108; PULSE 114; RESP 16; O2SAT 97
--- NOTE | 2021-02-07 17:23 | ED.RN ---
REVIEWED D/C INSTRUCTIONS, FOLLOW UP CARE, AND S/S THAT WOULD WARRANT A RETURN TO THE ED WITH PT. PT VERBALIZED AN UNDERSTANDING AND DENIES FURTHER QUESTIONS FOR THIS RN. PT SKIN P/W/D, RESP EVEN AND UNLABORED, PT A&O X 3, NO DISTRESS NOTED. PT AMBULATED OUT OF ED, GAIT STEADY.
== END 2021-02-07 17:24 | disposition home or self-care (01) ==
LOC: ED 17:21
PROVIDERS: Emergency Provider Emergency Medicine; PCP Family Medicine
DX: K62.5 Hemorrhage of anus and rectum (principal); K64.4 Residual hemorrhoidal skin tags; R19.7 Diarrhea, unspecified; F41.9 Anxiety disorder, unspecified; F32.A Depression, unspecified; F90.9 Attention-deficit hyperactivity disorder, unspecified type; Z79.899 Other long term (current) drug therapy; Z87.891 Personal history of nicotine dependence
CPT/HCPCS: 99282

== ENCOUNTER 2021-04-30 12:02 | Outpatient (RCR) | payer MEDICAID, SELFPAY | END 2021-05-14 23:59 | disposition home or self-care (01) | LOC: IMMUN 12:02 | PROVIDERS: PCP Family Medicine; Visit Provider Family Medicine | DX: Z00.00 Encounter for general adult medical examination without abnormal findings (principal) ==

== ENCOUNTER → 2022-12-19 | Outpatient (CLI) | payer MEDICAID, SELFPAY ==
[2022-12-23 12:08] LABS: Hepatitis B Core AB IgM Negative (Negative); QNTFERON TB Mitogen Value > 10.00 IU/mL (.); QNTFERON TB Nil Value 0.05 IU/mL (.); QNTFERON TB1+ Ag Value 0.03 IU/mL (.); QNTFERON TB2+ Ag Value 0.04 IU/mL (.); QNTIFERON TB Positive Criteria Negative (Negative)
== END | disposition home or self-care (01) ==
LOC: BIMLAB 11:37
PROVIDERS: PCP Family Medicine; Referring Provider Physician Assistant; Visit Provider Physician Assistant
DX: L70.0 Acne vulgaris (principal); L73.2 Hidradenitis suppurativa; D23.71 Other benign neoplasm of skin of right lower limb, including hip; Z79.899 Other long term (current) drug therapy
CPT/HCPCS: 36415; 86480; 86705